=== PATIENT | male | born 1980 | race African-American/Black ===

== ENCOUNTER 2021-08-11 16:06 | Emergency (ER) | payer MEDICARE, MEDICAID | END 2021-08-11 17:00 | disposition home or self-care (01) | LOC: CSHERS 16:06 | DX: K04.7 Periapical abscess without sinus (principal); I10 Essential (primary) hypertension; K21.9 Gastro-esophageal reflux disease without esophagitis; F17.210 Nicotine dependence, cigarettes, uncomplicated; Z79.899 Other long term (current) drug therapy | CPT/HCPCS: 99283 ==

== ENCOUNTER 2021-08-27 14:32 | Emergency (ER) | payer MEDICARE, MEDICAID ==
[2021-08-28 17:56] LABS: SARS-CoV-2 PCR by NAA DETECTED (NotDetected)
== END 2021-08-27 16:50 | disposition home or self-care (01) ==
LOC: CSHERS 14:32
DX: U07.1 COVID-19 (principal); I10 Essential (primary) hypertension; K21.9 Gastro-esophageal reflux disease without esophagitis; F17.210 Nicotine dependence, cigarettes, uncomplicated; Z79.899 Other long term (current) drug therapy
CPT/HCPCS: U0003; U0005; 99284